=== PATIENT | female | born 1965 | race Caucasian/White ===

== ENCOUNTER 2018-08-09 21:08 | Emergency (ER) | payer OTHER ==
[~2018-08-09] VITALS: Ht 162.6 cm; Wt 72.7 kg
[2018-08-09 21:10] VITALS: Ht 162.6 cm; Wt 72.7 kg
[2018-08-09] MEDS ORDERED: ONDANSETRON 4 MG INJ IV STA (21:43)
[2018-08-09] MEDS ORDERED: HYDROmorphONE 1 MG/ML SYG IV STA (21:43)
[2018-08-09] MEDS ORDERED: SOD CHLORIDE 0.9% 1,000 ML IV STA (21:43)
[2018-08-09 23:40] VITALS: BP 160/90; PULSE 81; RESP 16
--- NOTE | 2018-08-10 00:01 | ERD ---
ER Documentation Chief Complaint Chief Complaint RUQ PAIN RADIATING TO BACK; HX OF CHOLECYSTECTOMY HPI This is a 53-year-old female who is here for 2 hours prior to arrival with right upper quadrant pain with radiation to the right back. She said it feels very similar to when she had gallstones but she had her gallbladder removed years ago. Pain is currently sharp and mild to moderate. No nausea vomiting or diarrhea. No chest pain or shortness of breath. No hematuria or dysuria ROS All systems reviewed and are negative except as per history of present illness. Allergies Allergies: Coded Allergies: No Known Allergy (Unverified , 08/09/18) PMhx/Soc History of Surgery: Yes (choley, ) Anesthesia Reaction: No Hx Cardiac Disorders: Yes (htn) Hx Alcohol Use: No Hx Substance Use: No Hx Tobacco Use: No Smoking Status: Never smoker FmHx Family History: No coronary disease Physical Exam Vitals Vital Signs Date Temp Pulse Resp B/P (MAP) Pulse Ox O2 O2 Flow FiO2 Time Delivery Rate 08/09/18 81 16 160/90 100 Room Air 23:40 (113) 08/09/18 97.5 84 20 179/81 100 21:10 (113) Physical Exam Const: Well-developed, well-nourished Head: Atraumatic, normocephalic Eyes: Normal Conjunctiva, PERRLA, EOMI, normal sclera, no nystagmus ENT: Normal External Ears, Nose and Mouth, moist mucus membranes. Neck: Full range of motion. No meningismus, no lymphadenopathy. Resp: Clear to auscultation bilaterally, no wheezing, rhonchi, rales Cardio: Regular rate and rhythm, no murmurs, S1 S2 present Abd: Soft, right upper quadrant tenderness non distended. Normal bowel sounds, no guarding or rebound, no pulsitile abdominal masses or bruits Skin: No petechiae or rashes, no ecchymosis , no maculopapular rash Back: No midline or flank tenderness Ext: No cyanosis, or edema, FROM x 4, normal inspection, neurovascularly intact x 4 Neur: Awake and alert, STR 5/5 x 4, sensation intact x 4, no focal findings, cerebellum intact Psych: Normal Mood and Affect Result Diagram: 08/09/18215308/09/182153 Results 24 hrs Laboratory Tests Test 08/09/18 21:53 08/09/18 21:54 Urine Color YELLOW Urine Clarity SLIGHTLY CLOUDY Urine pH 6.0 Urine Specific [place] 1.031 Urine Ketones TRACE mg/dL Urine Nitrite NEGATIVE mg/dL Urine Bilirubin NEGATIVE mg/dL Urine Urobilinogen 2+ mg/dL Urine Leukocyte Esterase TRACE [place]ul Urine Microscopic RBC 3 /HPF Urine Microscopic WBC 9 /HPF Urine Squamous Epithelial Cells FEW /HPF Urine Mucus FEW /HPF Urine Hemoglobin NEGATIVE mg/dL Urine Glucose NEGATIVE mg/dL Urine Total Protein 1+ mg/dl White Blood Count 10.0 10^3/ul Red Blood Count 5.10 10^6/ul Hemoglobin 14.7 g/dl Hematocrit 43.6 % Mean Corpuscular Volume 85.5 fl Mean Corpuscular Hemoglobin 28.8 pg Mean Corpuscular Hemoglobin Concent 33.7 g/dl Red Cell Distribution Width 12.9 % Platelet Count 374 10^3/UL Mean Platelet Volume 9.9 fl Immature Granulocytes % 0.400 % Neutrophils % 47.7 % Lymphocytes % 44.4 % Monocytes % 5.9 % Eosinophils % 1.4 % Basophils % 0.2 % Nucleated Red Blood Cells % 0.0 /100WBC Immature Granulocytes # 0.040 10^3/ul Neutrophils # 4.8 10^3/ul Lymphocytes # 4.5 10^3/ul Monocytes # 0.6 10^3/ul Eosinophils # 0.1 10^3/ul Basophils # 0.0 10^3/ul Nucleated Red Blood Cells # 0.0 10^3/ul Sodium Level 143 mmol/L Potassium Level 3.3 mmol/L Chloride Level 106 mmol/L Carbon Dioxide Level 21 mmol/L Anion Gap 16 Blood Urea Nitrogen 14 mg/dl Creatinine 0.85 mg/dl Est Glomerular Filtrat Rate mL/min > 60 mL/min Glucose Level 165 mg/dl Calcium Level 9.8 mg/dl Total Bilirubin 0.8 mg/dl Direct Bilirubin 0.00 mg/dl Indirect Bilirubin 0.8 mg/dl Aspartate Amino Transf (AST/SGOT) 76 IU/L Alanine Aminotransferase (ALT/SGPT) 33 IU/L Alkaline Phosphatase 129 IU/L Total Protein 8.5 g/dl Albumin 4.7 g/dl Globulin 3.80 g/dl Albumin/Globulin Ratio 1.23 Lipase 717 U/L Current Medications Medications Dose Sig/Katherin Start Time Status Last (Trade) Ordered Route PRN Stop Time Admin Dose Reason Admin Sodium 1,000 ml @ Q1H STAT 08/09/18 DC 08/09/18 Chloride 1,000 mls/hr IV 21:43 08/09/18 21:49 22:42 1 mg ONCE STAT 08/09/18 DC 08/09/18 Hydromorphone IV 21:43 08/09/18 21:49 HCl 21:46 (Dilaudid) Ondansetron 4 mg ONCE STAT 08/09/18 DC 08/09/18 HCl (Zofran IV 21:43 08/09/18 21:49 Inj) 21:46 Procedures/[place] [id number] Radiology Main Line: [phone] DIAGNOSTIC IMAGING REPORT Patient: RUBINA IBARRA : 1965 Age: 53 Sex: F MR #: [id number] DOS: 08/09/18 2143 Ordering MD: MURALI WAYNE DO Location: E/R Room/Bed: PROCEDURE: CT Abdomen and Pelvis without contrast. CLINICAL INDICATION: Right flank pain. TECHNIQUE: A CT scan of the abdomen and pelvis was performed without intravenous contrast. Coronal and sagittal reformatted images were generated. DICOM images are available. Images were reviewed on a high-resolution PACS workstation. CTDIvol: 12.91 mGy. DLP: 757.38 mGy-cm. One or more of the following dose reduction techniques were used: - Automated exposure control. - Adjustment of the mA and/or kV according to patient size. - Use of iterative reconstruction technique. COMPARISON: None. FINDINGS: The lung bases are clear. Evaluation of the abdominal and pelvic viscera is limited by the lack of oral and intravenous contrast. The liver is unremarkable. The patient is status post cholecystectomy. There is extrahepatic biliary ductal dilatation (CBD: 1.2 cm), probably due to absence of the gallbladder. The spleen is not enlarged. No pancreatic lesion is identified and there is no pancreatic ductal dilatation. The adrenal glands are unremarkable. The kidneys are normal in size. There is no perinephric fat stranding. No hydronephrosis is seen. No urinary stone is identified. The small and large bowel are normal in caliber. There is no bowel wall thickening. The appendix is normal. The urinary bladder is unremarkable. The pelvic organs are within normal limits. No lymphadenopathy is identified. There is no ascites. No pneumoperitoneum is seen. There are mild arterial calcifications. There are calcified injection granulomas in the subcutaneous fat of both buttocks. No suspicious osseous lesion is identified. IMPRESSION: No inflammation, mass, or lymphadenopathy. No obstructive uropathy or urinary stone. Normal appendix. Status post cholecystectomy. Mild atherosclerotic calcifications. RPTAT: HTAR .Lupillo Damon MD, MD Date Time Electronically viewed and signed by .Lupillo Damon MD, MD on 08/09/2018 23:48 .R/ CC: MURALI WAYNE DO [id number] [place] [address] Radiology Main Line: [phone] DIAGNOSTIC IMAGING REPORT Patient: RUBINA IBARRA : 1965 Age: 53 Sex: F [id number] DOS: 08/09/183 Ordering MD: MURALI WAYNE DO Location: E/R Room/Bed: PROCEDURE: Right upper quadrant ultrasound. CLINICAL INDICATION: Abdominal pain. TECHNIQUE: Multiple real-time longitudinal and transverse images of the right upper quadrant of the abdomen were acquired utilizing a curved array transducer. Images were reviewed on a high-resolution PACS workstation. COMPARISON: None. FINDINGS: The pancreas head and body are unremarkable. The pancreas tail is not well seen. The liver is normal in echogenicity. The liver measures 9.5 cm in length. No hepatic lesion or intrahepatic biliary ductal dilatation is seen. The portal vein is patent with hepatopetal flow. The patient is status post cholecystectomy. The common bile duct measures 4 mm in diameter, not dilated. The right kidney measures 10.4 cm in length. Renal echogenicity is normal. There is no hydronephrosis, urinary calculus, or renal mass. The visualized portions of the aorta and IVC are unremarkable. IMPRESSION: Status post cholecystectomy. No biliary dilatation. RPTAT: HTAR .Lupillo Damon MD, MD Date Time Electronically viewed and signed by .Lupillo Damon MD, MD on 08/09/2018 23:50 .R/ CC: MURALI WAYNE DO [id number] EKG: Rate/Rhythm: Normal Sinus Rhythm,NL intervals QRS, ST, QT: NORMAL [place], QRS, prolonged QT] Impression: Abnormal EKG Patient has no evidence of dilated ducts or kidney stones on the right side. Her symptoms sound like she is having some biliary colic and will treat with Bentyl and [place]. Low-fat diet. She may need a HIDA scan to further point time Departure Diagnosis: Primary Impression: Abdominal pain Abdominal location: right upper quadrant Qualified Codes: R10.11 - Right upper quadrant pain Condition: Stable MURALI WAYNE DO Aug 10, 2018 00:01
[2018-08-10] MEDS ORDERED: DICY10CA40 PO (00:02)
[2018-08-10] MEDS ORDERED: HYDR-3980 PO (00:02)
== END 2018-08-10 00:16 | disposition home or self-care (01) ==
LOC: E/R 21:08
DX: R10.11 Right upper quadrant pain (principal); I10 Essential (primary) hypertension
CPT/HCPCS: 36415; 74176; 76705; 80053; 81001; 83690; 85025; 96374; 96375; 99285; J1170; J7030